=== PATIENT | female | born 2000 | race Caucasian/White ===

== ENCOUNTER 2020-04-13 00:01 | Inpatient (IN) ==
[2020-04-13] MEDS ORDERED: DEXTROSE 5%-LACTATED RINGERS 1,000 ML IV PRN (00:08)
[2020-04-13] MEDS ORDERED: PENICILLIN G POTASSIUM 5 MILLIONUNT in DEXTROSE 5 % IN WATER 100 ML IV ONE ×2 (00:08)
[2020-04-13] MEDS ORDERED: RINGER'S SOLUTION,LACTATED 1,000 ML IV ONE (00:08)
[2020-04-13] MEDS ORDERED: ONDANSETRON 4 MG TAB.RAPDIS PO PRN (00:08)
[2020-04-13] MEDS ORDERED: OXYTOCIN/0.9 % SODIUM CHLORIDE 30 UNITS/500 ML BAG IV ONE ×2 (00:08→09:07)
[2020-04-13 00:39] LABS: Cocaine Ur Negative (NEGATIVE); Urine Barbiturate Negative (NEGATIVE); Urine Benzodiazepines Negative (NEGATIVE); Urine Opiates Negative (NEGATIVE); Urine PCP Negative (NEGATIVE); Urine THC Negative (NEGATIVE)
[2020-04-13] MEDS ORDERED: BUPIVACAINE HCL/0.9 % NACL/PF 250 ML EP PRN (02:08)
[2020-04-13] MEDS ORDERED: ONDANSETRON HCL/PF 2 MG/ML VIAL IV PRN (02:08)
[2020-04-13] MEDS ORDERED: NALOXONE HCL 1 MG/1 ML SYRG IV PRN (02:08)
[2020-04-13] MEDS ORDERED: BUPIVACAINE HCL/PF 30 ML VIAL EP SCH (02:15)
--- NOTE | 2020-04-13 02:46 | ANES ---
Anesthesia Pre Procedure Eval Vitals/Labs: Last Vital Signs Temp 36.4 C 04/13/20 00:15 Pulse 103 H 04/13/20 00:15 Resp 20 04/13/20 00:15 BP 126/80 04/13/20 00:15 Pulse Ox 98 04/13/20 00:15 HOME MEDICATIONS aspirin 81 mg tablet,delayed release 81 mg PO DAILY 04/01/20 [Last Taken Unknown] prenat.vits,marya,lvx-[id number]-zgbrj 1 tab PO DAILY 04/01/20 [Last Taken Unknown] Allergies/Adverse Reactions: Allergies Allergy/AdvReac Type Severity Reaction Status Date / Time No Known Allergies Allergy Verified 04/13/20 00:09 - Planned Procedure Planned Procedure: medical induction 39 and 5 sga Medication List Reviewed:: Yes Allergies Verified: Yes Medical History (Last Reviewed 04/13/20 @ 02:45 by Caden Kennedy CRNA) Lazy eye of right side Preeclampsia Onset Date: 2014 Surgical History (Last Reviewed 04/13/20 @ 02:45 by Caden Kennedy CRNA) Hx of tonsillectomy [place] teeth extracted Onset Date: ~2017 Family History (Last Reviewed 04/13/20 @ 02:45 by Caden Kennedy CRNA) Mother , suicide Suicide Father Alive and well Grandmother Asthma - Anesthesia Assessment and Plan ASA Class: PS, II Anesthesia Type Plan: Epidural
--- NOTE | 2020-04-13 03:00 | ANES ---
Anesthesia Procedure Note Procedure Note: ANESTHESIA PROCEDURE NOTE Date of Procedure: 04/13/2020. Time of procedure: 244. Performed by: Caden Kennedy CRNA Printing Plate Maker: None. Preprocedure diagnosis: Active labor. Post procedure diagnosis: Same. Procedure: Insertion of labor epidural. Indications: The patient is a 20-year-old female in active labor requesting labor epidural for pain management. Findings: See below. Details of the procedure: The patient was placed in a sitting position. DuraPrep as well as Betadine swabs X3 was applied to the patient's back. Patient was then draped in a sterile fashion. Lidocaine 1% was infiltrated to the skin and subcutaneous tissues at the level of the L3-4 interspace. The epidural space was identified using a 18-gauge Tuohy needle with [id number] technique. Epidural catheter was inserted to a depth of 12 centimeters at skin. Negative test dose was elicited using 3 mL of 1.5% preservative-free lidocaine plus epinephrine 1 200,000. The epidural catheter was then taped and secured in place. A loading dose of 8 mL of 0.25% preservative-free bupivacaine was administered to the epidural catheter after negative aspiration for blood and CSF. EBL: Minimal. Fluids: N/A. Specimen: N/A. Post procedure condition: The patient tolerated the procedure well. No complications were noted. Thank you for this consultation. Caden Kennedy CRNA
--- NOTE | 2020-04-13 03:01 | ANES ---
Post Anesthesia Assessment - Vital Signs Vitals: Last Vital Signs Temp 36.3 C 04/13/20 03:00 Pulse 81 04/13/20 03:00 Resp 20 04/13/20 03:00 BP 132/71 04/13/20 03:00 Pulse Ox 100 04/13/20 03:00 Airway Patency: Normal - Mental Status Level Of Consciousness: Awake - N/V Assessment Nausea/Vomiting Presence: None Dehydration:: No
[2020-04-13] MEDS: PENICILLIN G POTASSIUM 2.5 MILLIONUNT in DEXTROSE 5 % IN WATER 100 ML IV SCH ×4 (04:10→07:54)
--- NOTE | 2020-04-13 09:02 | HP ---
Chief Complaint - Chief Complaint Date of Service: 04/13/20 Time of Service: 08:30 Chief Complaint: painful contractions History of Present Illness: 20 yo at 39 5/7 wks presents to L&D complaining of contractions of increasing frequency and intensity since last night. This complicated by anemia, smoker, history of marijuana use, and history of preeclampsia. RH positive Rubella immune GBS positive by urine cx. Medical History (Last Reviewed 04/13/20 @ 17:24 by Lam Fong DO) Lazy eye of right side Preeclampsia Onset Date: 2014 Surgical History: Surgical History (Last Reviewed 04/13/20 @ 17:24 by Lam Fong DO) Hx of tonsillectomy [place] teeth extracted Onset Date: ~2017 Family History: Family History (Last Reviewed 04/13/20 @ 17:24 by Lam Fong DO) Mother , suicide Suicide Father Alive and well Grandmother Asthma Social History: (Last Reviewed 04/13/20 @ 17:24 by Lam Fong DO) Social History: adopted: No Marital status: Single household members: significant other number of children: 1 current occupational status: unemployed, employed current occupation: [employer] Highest education level completed: 12th grade, no diploma Sexually Active: Yes Service: No Tobacco: Smoking Status: Current some day smoker tobacco type: cigarettes Alcohol: alcohol intake: never Substance Use: substance use type: former substance user Dietary Habits: caffeine: Yes caffeine comment: 1 daily Type: coffee Exercise: Physical activity type: none Review Of Systems (GEN) - Review of Systems Generalized/Overall Review: Present: No Symptoms Reported EENTM: Present: No Symptoms Reported Respiratory: Present: No Symptoms Reported Cardiac: Present: No Symptoms Reported Abdominal: Present: Other - contractions Genitourinary: Present: Other - vaginal pressure Musculoskeletal: Present: No Symptoms Reported Neurological: Present: No Symptoms Reported Skin: Present: No Symptoms Reported Endocrine: Present: No Symptoms Reported Allergies/Adverse Reactions: Allergies Allergy/AdvReac Type Severity Reaction Status Date / Time No Known Allergies Allergy Verified 04/13/20 00:09 Home Medications: HOME MEDICATIONS aspirin 81 mg tablet,delayed release 81 mg PO DAILY 04/01/20 [Last Taken Unknown] prenat.vits,marya,lzg-ndnx-rheer 1 tab PO DAILY 04/01/20 [Last Taken Unknown] Exam - Exam Vital Signs: Vital Signs - Last Taken Temp 36.3 C 04/13/20 03:00 Pulse 81 04/13/20 03:00 Resp 20 04/13/20 03:00 BP 132/71 04/13/20 03:00 Pulse Ox 100 04/13/20 03:00 Constitutional: Present: Alert, Oriented x3, Cooperative ENT Exam: Present: hearing grossly normal Neck: Present: non-tender, trachea midline. Absent: thyromegaly Breasts: Present: Exam deferred Respiratory: Present: lungs clear, no respiratory distress Cardiovascular/Chest: Present: normal peripheral pulses, regular rate, rhythm Abdomen: Present: soft, nontender, no rebound tenderness, other - Gravid /Rectal: Present: Other - Cervix 3/50/-2 Extremity: Present: no pedal edema, no calf tenderness Skin Exam: Present: normal color, warm/dry, no cyanosis Neurologic: Present: alert, normal mood/affect, oriented x 3 Appearance: Present: appropriate appearance, appropriate insight Eye contact: Present: cooperative Thoughts: Present: normal thought pattern, normal mood /affect Diagnostic Studies: Laboratory Results Urine Opiates Screen Negative (NEGATIVE) 04/13/20 00:24 Barbiturate Screen Negative (NEGATIVE) 04/13/20 00:24 Ur Phencyclidine Scrn Negative (NEGATIVE) 04/13/20 00:24 Urine Amphetamine Negative (NEGATIVE) 04/13/20 00:24 U Benzodiazepines Scrn Negative (NEGATIVE) 04/13/20 00:24 Urine Cocaine Screen Negative (NEGATIVE) 04/13/20 00:24 Urine Marijuana (THC) Negative (NEGATIVE) 04/13/20 00:24 Assessment/Plan - Assessment/Plan (1) Labor established Assessment: Admit for routine management of labor. IV PCN per GBS protocol. Epidural and pitocin PRN. Problem: Acute (2) Group B streptococcal carriage complicating Problem: Acute (3) Smoker Problem: Chronic (4) Anemia Problem: Acute Qualifiers: Anemia type: iron deficiency Iron deficiency anemia type: inadequate dietary iron intake Qualified Code(s): D50.8 - Other iron deficiency anemias
--- NOTE | 2020-04-13 09:04 | OR ---
Operative Report - Dictated Report Narrative: Spontaneous vaginal delivery of vigorously crying viable female at 0838 on 04/13/2020 with Apgars 8 and 9, weighing 2654 g in OSVALDO position with tight nuchal cord x1 and moderate meconium fluid. Cord clamping delayed approximately 1 minute Placenta delivered complete, intact, with three vessel cord Estimated blood loss: Less than 50 ml Anesthesia: Epidural Lacerations: None History for MU History for Definition: * The number of deliveries resulting in a live the patient experienced prior to current hospitalization * The previous delivery of live twins or any live multiple gestation is considered one live event. *If primagravida or nulliparous is documented select zero for the number of previous live births. Live Events: Live Events: 1
[2020-04-13] MEDS ORDERED: HYDROCORTISONE 30 APPL TUBE TP PRN (09:07)
[2020-04-13] MEDS ORDERED: BENZOCAINE/MENTHOL 81 SPRAY CAN TP PRN (09:07)
[2020-04-13] MEDS ORDERED: SENNOSIDES 8.6 MG TABLET PO PRN (09:07)
[2020-04-13] MEDS ORDERED: oxyCODONE HCL/ACETAMINOPHEN 1 TAB TABLET PO PRN (09:07)
[2020-04-13] MEDS ORDERED: BISACODYL 10 MG SUPP.RECT RC PRN (09:07)
[2020-04-13] MEDS ORDERED: GLYCERIN/WITCH HAZEL LEAF 40 APPL BOX TP PRN (09:07)
[2020-04-13] MEDS ORDERED: IBUPROFEN 800 MG TABLET PO PRN (09:07)
[2020-04-13] MEDS: PRENATAL VITS96/IRON FUM/FOLIC 1 TAB TABLET PO SCH (11:23)
[2020-04-13] MEDS: IBUPROFEN 800 MG TABLET PO PRN (15:20)
--- NOTE | 2020-04-14 00:33 | PN ---
Subjective - Date and Time Seen Date: 04/14/20 Time: 00:31 Objective - Vitals Vitals: Last Vital Signs Temp 36.3 C 04/13/20 14:07 Pulse 60 04/13/20 19:13 Resp 16 04/13/20 19:13 BP 118/60 04/13/20 19:13 Pulse Ox 98 04/13/20 19:13 Patient denies nausea, vomiting, or excessive bleeding. Patient complains of a moderate amount of cramping controlled with ibuprofen. Lochia wnl abdomen - soft, nontender Uterus -firm, at umbilicus - 1 No calf tenderness Impression: day #1 - s/p spontaneous vaginal delivery. Plan: Continue routine care Cauti Physician Documentation - Urinary Catheter Management Urethral (Lord) Date of Insertion: 04/13/20 Time of Insertion: 03:25 Date of Removal: 04/13/20 Time of Removal: 08:34 Assessment/Plan - Problems/Diagnosis (1) Labor established Problem: Acute (2) Group B streptococcal carriage complicating Problem: Acute (3) Smoker Problem: Chronic (4) Anemia Problem: Acute Qualifiers: Anemia type: iron deficiency Iron deficiency anemia type: inadequate dietary iron intake Qualified Code(s): D50.8 - Other iron deficiency anemias
[2020-04-14] MEDS: DOCUSATE SODIUM 100 MG CAPSULE PO SCH ×3 (01:26→09:56)
[2020-04-14] MEDS: PRENATAL VITS96/IRON FUM/FOLIC 1 TAB TABLET PO SCH ×2 (07:58→09:56)
[2020-04-14] MEDS: IBUPROFEN 800 MG TABLET PO PRN (07:58)
[2020-04-14 09:36] VITALS: BP 112/68
--- NOTE | 2020-04-14 13:20 | DS ---
OB Discharge Summary (1) Labor established Status: Resolved (2) Group B streptococcal carriage complicating Status: Resolved (3) Smoker Status: Chronic (4) Anemia Status: Chronic Qualifiers: Anemia type: iron deficiency Iron deficiency anemia type: inadequate dietary iron intake Qualified Code(s): D50.8 - Other iron deficiency anemias Delivery Date: 04/13/20 Delivery Time: 08:38 :: 2 Para:: 2 Gestational weeks:: 39 Gestational days:: 5 Intrapartum Procedures: Spontaneous Vaginal Delivery, Anesthesia - Epidural, Other - prophylactic antibiotics /OP Complications: No Complications Discharge Diagnosis: Term -Delivered - Discharge Information Date of Discharge: 04/14/20 Hospital Course: 20-year-old female admitted in early labor. She progressed rapidly and had an uneventful delivery and course. Patient desires early discharge and was discharged late day one with routine discharge instructions. Discharge Location: Home Disposition: Home self-care Condition: Good Activity on Discharge:: Pelvic Rest Discharge Diet: General/regular food Additional Patient Instructions (free text): rafael Michael follow up appointment is May 21 at 3:15 PM . Moy appointment is tomorrow at 10:[address] Nguyen Nurse Leena every 2 to 3 hours and on demand. If you give her a bottle you need to pump in order to get a good milk supply. Rest when she rest. Lay her on her back to sleep in her own crib. No extra pillows, blankets or stuffed animals. No co sleeping. weight - 5 lb 13.6 oz Discharge weight - 5 lb 9.2 oz Blood type - A+ Passed her hearing screen and CHD screens. Please don't hesitate with any questions or concerns. [facility] - [phone], PEDS [phone], Place [phone]. Prescriptions (Any new or edited meds): Ferrous Sulfate 325 mg PO DAILY #60 tab Ibuprofen [Motrin] 200 - 800 mg PO Q6H PRN #100 tab PRN Reason: Pain Complete Home Medications List: Complete Home Medication List: prenat.vits,marya,oej-cphm-otilk 1 tab PO DAILY 04/01/20 Ferrous Sulfate 325 mg PO DAILY #60 tab 04/14/20 Ibuprofen [Motrin] 200 - 800 mg PO Q6H PRN #100 tab 10/06/20 - Plan Discharge to:: Home Follow up in office in:: 3-4 weeks - Information Weight (Grams): 2,654 Sex: Female Score 1 min: 8 Score 5 min: 9 Circumcision: Not Applicable Infant Complications: Meconium Other Complications: moderate meconium, tight nuchal cord x 1.
== END 2020-04-14 14:45 | disposition home or self-care (01) | DRG 807 ==
LOC: OB 00:01
PROVIDERS: ADMIT Obstetrics & Gynecology; ATTEND Obstetrics & Gynecology
DX: Z3A.39 39 weeks gestation of pregnancy; O99.334 Smoking (tobacco) complicating childbirth; O99.02 Anemia complicating childbirth; F12.11 Cannabis abuse, in remission; Z37.0 Single live birth; O69.81X0 Labor and delivery complicated by cord around neck, without compression, not applicable or unspecified; O77.0 Labor and delivery complicated by meconium in amniotic fluid; O99.824 Streptococcus B carrier state complicating childbirth; D50.9 Iron deficiency anemia, unspecified